=== PATIENT | male | born 1980 | race Caucasian/White ===

== ENCOUNTER 2016-11-26 17:38 | Emergency (ER) | payer SELFPAY | END 2016-11-26 19:30 | disposition home or self-care (01) | LOC: ER 17:38 | DX: S61.220A Laceration with foreign body of right index finger without damage to nail, initial encounter (principal); Z23 Encounter for immunization; W28.XXXA Contact with powered lawn mower, initial encounter; Y92.009 Unspecified place in unspecified non-institutional (private) residence as the place of occurrence of the external cause | CPT/HCPCS: 90471 ==